=== PATIENT | female | born 1975 | race Caucasian/White ===

== ENCOUNTER 2021-09-24 09:53 | Outpatient (CLI) | payer BC, SELFPAY ==
--- NOTE | ~2021-09-24 | XR_ITS ---
EXAMINATION: XR chest 2V 09/24/2021 10:10 INDICATION: Bronchitis PROCEDURE: 2 view chest COMPARISON: No prior studies for comparison. FINDINGS: The lungs are clear. The cardiomediastinal silhouette is within normal limits. There are no pleural effusions. There is no pneumothorax suspected. IMPRESSION: 1: NO ACUTE CARDIOPULMONARY DISEASE. Reviewed, dictated and finalized at location A. 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
== END 2021-09-24 09:54 ==
PROVIDERS: PCP Family Medicine; Visit Provider Physician Assistant
DX: J40 Bronchitis, not specified as acute or chronic (principal)
CPT/HCPCS: 71046

== ENCOUNTER 2021-12-11 11:19 | Outpatient (CLI) | payer BC, SELFPAY ==
--- NOTE | ~2021-12-11 | XR_ITS ---
EXAM: XR foot RT min 3V HISTORY: Right foot pain . COMPARISON: None available. FINDINGS: Normal mineralization. No fracture or dislocation. No lytic or blastic lesion. Moderate paulino llux valgus with overlying soft tissue swelling. Mild degenerative change at the first MTP and in the midfoot joints. Plantar enthesopathy. No erosion or periosteal change. Soft tissues within normal li mits. IMPRESSION: Moderate hallux valgus. Mild degenerative change at the first MTP and midfoot. Plantar en thesopathy. Reviewed, dictated and finalized at location K. IMPRESSION: Moderate hallux valgus. Mild degenerative change at the first MTP a nd midfoot. Plantar enthesopathy.
== END 2021-12-11 11:20 ==
LOC: MICIMG 11:24
PROVIDERS: PCP Family Medicine; Visit Provider Physician Assistant
DX: M20.11 Hallux valgus (acquired), right foot (principal); M77.31 Calcaneal spur, right foot
CPT/HCPCS: 73630

== ENCOUNTER 2024-03-23 12:47 | Emergency (ER) | payer OTHER, BC, SELFPAY ==
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
--- NOTE | ~2024-03-23 | CT_ITS ---
Noncontrast CT scan of the cervical spine Technique: Multiple contiguous axial [address] images of the cervical spine were obtained and rec onstructed in 2D sagittal and coronal planes on the acquisition scanner. Dose reduction technique was used on this scan by utilizing automated exposure control, adjustment of the mA and/or kV according to patient size. The dose-length product (DLP) was 413.47 mGy-cm. Clinical History: Pain Findings: No acute fracture or subluxation. There is anterior and interbody fusion from C5 to C7. The re is mild degenerative disc change at C4-C5. There is probable mild right neural foraminal narrowing at C5-C6. Probable mild bilateral neural foraminal narrowing at C6-C7. No prevertebral soft tissue s welling. Impression: No fracture or subluxation of the cervical spine. Anterior and interbody fusion from C5 to C7. Mild degenerative change, as above. Reviewed, dictated and finalized at [facility]. Impression: No fracture or subluxation of the cervical spine. Anterior and interbody fusion from C5 to C7. Mild degenerative change, as above.
--- NOTE | ~2024-03-23 | XR_ITS ---
EXAMINATION: XR shoulder RT min 2V DATE: 03/23/2024 17:15 INDICATION: Right shoulder pain. TECHNIQUE: 4 views of right shoulder were obtained. COMPARISON: None. FINDINGS: Bone alignment is normal. No fracture. There is mild osteoarthritis of glenohumeral joint a nd severe osteoarthritis of acromioclavicular joint. There are changes of anterior fusion procedure i n cervical spine. IMPRESSION: 1. Polyarticular osteoarthritis. Reviewed, dictated and finalized at location A.
[2024-03-23 13:32] VITALS: BP 153/97; PULSE 115; RESP 19; TEMP 36.8; O2SAT 100
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
[2024-03-23] MEDS: KETOROLAC (*BKC) 60 MG/2 ML VIAL IM (17:18)
[2024-03-23] MEDS: CYCLOBENZAPRINE HCL 5 MG TABLET PO (17:19)
[2024-03-23] MEDS: HYDROcodone/acetaminophen (*CRX) 5-325 MG TABLET 1 TAB PO (17:19)
[2024-03-23 18:08] VITALS: BP 152/86; PULSE 90; RESP 18; TEMP 36.4; O2SAT 100
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
== END 2024-03-23 19:10 | disposition home or self-care (01) ==
PROVIDERS: Emergency Provider Registered Nurse; PCP Family Medicine
DX: S16.1XXA Strain of muscle, fascia and tendon at neck level, initial encounter (principal); S13.4XXA Sprain of ligaments of cervical spine, initial encounter; F17.210 Nicotine dependence, cigarettes, uncomplicated; Z98.1 Arthrodesis status; M47.814 Spondylosis without myelopathy or radiculopathy, thoracic region; M19.011 Primary osteoarthritis, right shoulder; V49.40XA Driver injured in collision with unspecified motor vehicles in traffic accident, initial encounter
CPT/HCPCS: 70450; 72125; 72128; 73030; 96372; 99284; A9270; J1885